=== PATIENT | male | born 1970 | race Hispanic/Latino ===

== ENCOUNTER 2017-05-30 17:57 | Emergency (ER) | payer SELFPAY ==
[2017-05-30] MEDS ORDERED: Lidocaine 1% w/Epinephrine 1:100K 30 ML VIAL ONE (18:31)
[2017-05-30 18:43] LABS: #Basophils 0.1 thou/uL (0.0-0.2); #Eosinphils 0.2 thou/uL (0.0-0.7); #Lymphocytes 2.1 thou/uL (1.20-3.40); #Monocytes 0.8 thou/uL (0.11-0.59); #Neutrophils 9.2 thou/uL (1.40-6.50); %Eosinophils 1.9 % (0.0-10.0); %Lymphocytes 16.8 % (21.0-51.0); %Monocytes 6.5 % (0.0-10.0); %Neutrophils 73.8 % (42.0-75.0); Hemoglobin 14.8 g/dL (14.0-18.0); Mean Corpuscular HGB CONC 34.8 g/dL (32.0-36.0); Mean Corpuscular Volume 83.3 fl (80.0-94.0); Mean Platelet Volume 6.4 fL (7.4-10.4); Platelet Count 355 thou/uL (130-400); RBC Distribution Width 11.5 % (11.5-14.5); White Blood Cell (WBC) Count 12.5 thou/uL (4.8-10.8)
[2017-05-30] MEDS ORDERED: Ondansetron HCl/PF 4 MG/2 ML Vial ONE (18:50)
[2017-05-30] MEDS ORDERED: Morphine 4 MG/ML Carpuject ONE (18:50)
[2017-05-30 18:59] LABS: ALT (SGPT) 16 U/L (8-55); AST (SGOT) 12 U/L (5-34); Albumin 4.2 g/dL (3.5-5.0); Alkaline Phosphatase 125 U/L (40-150); Anion Gap 16 mmol/L (10-20); BUN (Urea Nitrogen) 11 mg/dL (8.9-20.6); Bilirubin, Total 0.7 mg/dL (0.2-1.2); CK (CPK) 322 U/L (30-200); Calc. Creatinine Clearance 0 mL/min (70-130); Calcium 9.6 mg/dL (7.8-10.44); Carbon Dioxide 22 mmol/L (22-29); Chloride 102 mmol/L (98-107); Estimated GFR-MDRD Greater than 90; Glucose 329 mg/dL (70-105); Potassium 4.1 mmol/L (3.5-5.1); Protein, Total 8.2 g/dL (6.0-8.3); Sodium 136 mmol/L (136-145)
[2017-05-30] MEDS ORDERED: Piperacillin/Tazobactam 3.375 GM VIAL ONE (19:35)
== END 2017-05-30 20:24 | disposition short-term general hospital (02) ==
LOC: BURERS 17:57
DX: L02.416 Cutaneous abscess of left lower limb (principal); F17.210 Nicotine dependence, cigarettes, uncomplicated; E11.9 Type 2 diabetes mellitus without complications
CPT/HCPCS: 10060; 80053; 82550; 85025; 87040; 96365; 96375; J2001; J2270; J2405; J2543; J3370

== ENCOUNTER 2017-07-10 08:23 | Emergency (ER) | payer MEDICAID ==
--- NOTE | 2017-07-10 09:58 | RAD ---
RIGHT SHOULDER 3 VIEWS: Date: 07/10/17 No fracture or dislocation seen. The AC joint is normal in width. The visible adjacent ribs appear in tact. IMPRESSION: No acute findings. POS: HOME
== END 2017-07-10 09:14 | disposition home or self-care (01) ==
LOC: BURERS 08:23
DX: S46.911A Strain of unspecified muscle, fascia and tendon at shoulder and upper arm level, right arm, initial encounter (principal); E11.9 Type 2 diabetes mellitus without complications; F17.210 Nicotine dependence, cigarettes, uncomplicated; W17.2XXA Fall into hole, initial encounter

== ENCOUNTER 2020-10-11 11:39 | Emergency (ER) | payer SELFPAY ==
[2020-10-11] MEDS ORDERED: Tetracaine 0.5% PF 4 ML BOT ONE (11:49)
[2020-10-11] MEDS ORDERED: Fluorescein Opthalmic Strip ONE (11:49)
== END 2020-10-11 12:19 | disposition home or self-care (01) ==
LOC: BURERS 11:39
DX: T15.91XA Foreign body on external eye, part unspecified, right eye, initial encounter (principal); E11.9 Type 2 diabetes mellitus without complications; F17.210 Nicotine dependence, cigarettes, uncomplicated
CPT/HCPCS: 65222